=== PATIENT | female | born 1995 | race African-American/Black ===

== ENCOUNTER 2017-04-29 19:01 | Observation (INO) | payer OTHER ==
[2017-04-29 21:25] LABS: #Basophils 0.1 thou/uL (0.0-0.2); #Eosinphils 0.6 thou/uL (0.0-0.7); #Monocytes 0.7 thou/uL (0.11-0.59); #Neutrophils 10.4 thou/uL (1.40-6.50); %Basophils 0.4 % (0.0-1.0); %Eosinophils 4.6 % (0.0-10.0); %Lymphocytes 14.6 % (21.0-51.0); %Monocytes 5.3 % (0.0-10.0); %Neutrophils 75.1 % (42.0-75.0); Hemoglobin 10.1 g/dL (12.0-16.0); Mean Corpuscular HGB CONC 31.8 g/dL (32.0-36.0); Mean Corpuscular Hemoglobin 22.9 pg (27.0-31.0); Mean Platelet Volume 10.8 fL (7.4-10.4); Platelet Count 221 thou/uL (130-400); RBC Distribution Width 15.5 % (11.5-14.5); Red Blood Cell (RBC) Count 4.39 mill/uL (4.20-5.40); White Blood Cell (WBC) Count 13.9 thou/uL (4.8-10.8)
[2017-04-29 21:41] LABS: ALT (SGPT) 28 U/L (8-55); AST (SGOT) 22 U/L (5-34); Albumin 3.5 g/dL (3.5-5.0); Alkaline Phosphatase 128 U/L (40-150); Anion Gap 13 mmol/L (10-20); BUN (Urea Nitrogen) 7 mg/dL (7.0-18.7); Bilirubin, Total 0.2 mg/dL (0.2-1.2); Calc. Creatinine Clearance 0 mL/min (70-130); Calcium 9.4 mg/dL (7.8-10.44); Carbon Dioxide 21 mmol/L (22-29); Chloride 107 mmol/L (98-107); Estimated GFR-MDRD Greater than 90; Globulin 3.6 g/dL (2.4-3.5); Glucose 80 mg/dL (70-105); Protein, Total 7.1 g/dL (6.0-8.3); Sodium 137 mmol/L (136-145)
[2017-04-29 21:44] LABS: Bilirubin Negative (Negative); Blood, Urine Negative (Negative); Clarity CLOUDY (Clear); Glucose, Urine (Dipstick) Negative (Negative); Leukocyte Moderate (Negative); Nitrite Negative (Negative); Protein, Urine (Dipstick) Negative (Neg-Trace); Specific Gravity, Urine 1.026 (1.002-1.036); pH, Urine 6.5 (5.0-9.0)
[2017-04-29 21:46] LABS: Bacteria/HPF Rare-Few HPF (None Seen); Hyaline Casts/LPF 0-3 HYALINE CAST LPF (0-3 Hyaline); RBC/HPF 0-3 HPF (0-3); Squamous Epithelial 0-3 HPF (0-3); WBC/HPF 21-50 HPF (0-3)
[2017-04-29] MEDS ORDERED: Nitrofurantoin Monohyd/M-Cryst 100 MG CAP PO SCH (22:15)
[2017-04-30 00:01] VITALS: BMI 38.4
[2017-04-30] MEDS ORDERED: Ondansetron HCl/PF 4 MG/2 ML Vial IVP PRN (00:21)
[2017-04-30] MEDS ORDERED: Promethazine HCl 25 MG/ML VIAL IM PRN (00:21)
--- NOTE | 2017-04-30 04:41 | PRG ---
OB ER ENCOUNTER DATE OF ENCOUNTER: 04/30/2017 PRIMARY GIFT SHOP MANAGER: Dr. Ariel Jacobs. CHIEF COMPLAINT: Elevated blood pressures. HISTORY OF PRESENT ILLNESS: The patient is a 22-year-old G1, P0 female with an intrauterine at 29 weeks and 6 days, who presented to the emergency room with onset of itching of her face and neck and ears that have spontaneously resolved after arrival to the emergency room. However, during her workup, the patient was noted to have persistently elevated blood pressures over her 3-hour stay at [facility] was notified. The patient was brought to Labor and Delivery for blood pressure monitoring. The patient denies any headache, chest pain, shortness of breath, nausea, vomiting, diarrhea or constipation. She does report she has vomiting on occasion as result of her . She denies any new rash, hip problems, knee problems, vaginal bleeding or leakage of fluid. The patient has been given a prescription of Macrobid during her workup in the emergency room for urinary tract infection. PAST MEDICAL HISTORY: Negative. PAST SURGICAL HISTORY: Negative. SOCIAL HISTORY: Denies drug, alcohol or tobacco use. OB LABS: Unavailable. ALLERGIES: PEANUTS. MEDICATIONS: vitamins and Diclegis. PHYSICAL EXAMINATION: VITAL SIGNS: Ranging from 137/50 to 151/78. GENERAL: The patient appears to be in no acute distress. She is alert and oriented, cooperative and pleasant to interact with. HEENT: Normocephalic, atraumatic. LUNGS: Clear to auscultation bilaterally. HEART: Regular rate and rhythm. ABDOMEN: Gravid and soft, nontender. EXTREMITIES: Nontender, nonedematous. GENITOURINARY: Has been deferred. heart tracing shows fetus in the 130s with moderate long-term variability and overall reassuring. Tocometer shows no contractions. LABORATORY WORK: White count is 13.9, hemoglobin is 10.1, hematocrit 31.6, platelets 221,000. Sodium 137, potassium 4.0, chloride 107, bicarbonate 21, BUN 7, creatinine 0.7, glucose 80, calcium 8.4, AST 22, ALT 28. Urine cloudy with trace ketones, moderate leukocyte esterase, 21-50 white blood cells, 0-3 squamous cells and rare to few bacteria, negative for protein. ASSESSMENT AND PLAN: The patient is a 22-year-old female with an intrauterine at 29 weeks and 6 days, who presented to the emergency room for possible allergic reaction and was noted to have elevated blood pressures. The patient has been brought to the Labor and Delivery for blood pressure monitoring. Lab work has all come back negative thus far. We have begun a 24- hour urine collection. Initial pressures during her stay here, have been in the mild range. We will continue blood pressure monitoring, a 24-hour urine collection and intermittent evaluation of the fetus over the next several hours today. At this time it appears, the patient is developing gestational hypertension. We will be looking for signs of worsening disease. GENNA
--- NOTE | 2017-04-30 10:14 | PDOC.EVN ---
Event Note - Event Note Event Note: Chrome Polisher note: Assumed care this am. 24 hour urine in progress. at 29 weeks , negative PIH labs O/A and UP negative. 24 hour urine to be completed at 0300 .
--- NOTE | 2017-04-30 16:02 | PDOC.EVN ---
Event Note - Event Note Event Note: Transfer note to Patient undergoing 24 hour urine at 29 weeks. No PIH SXS. I have reviewed the BPs in L&D..140/90s-100/70s. NST reactive. As no evidence severe pressures, we will transfer to to continue BP obs and 24 hour urine.
[2017-05-01 03:32] LABS: Collection Duration 24 hrs; Urine Total Volume 1250 mL (600-1600)
[2017-05-01 04:13] LABS: Protein, Urine Less than 10 mg/dL (1-14)
--- NOTE | 2017-05-01 06:41 | PDOC.EVN ---
Event Note - Event Note Event Note: DISCHARGE NOTE Patient of Dr Jacobs Admit date: 04/30/17 Discharge date: 05/01/17 Diagnosis: MIld gestational hypertension (nonproteinuric) The patient was admitted by Dr Cm, for Dr luna, as a 29 week 6 day with elevatedd BPs in the ED. A 24 hour urine was collected with negative protein (vol 1250ml). BPs were 140/902-110/80s. No sxs of PIH. She was sent home to follow up with Dr Chu. Gestational HTN reviewed with her. NSTs were reactive.
[2017-05-01 08:03] VITALS: BP 117/58; TEMP 97.6
[2017-05-01] MEDS ORDERED: Prenatal Vitamin 1 TAB PO SCH (09:00)
== END 2017-05-01 10:32 | disposition home or self-care (01) ==
LOC: ERS 19:01 → L&D 23:43 → 3SE 04-30 18:56 → L&D 04-30 18:58 → 3SE 04-30 19:31
PROVIDERS: ADMIT Obstetrics & Gynecology; ATTEND Obstetrics & Gynecology
DX: O13.3 Gestational [pregnancy-induced] hypertension without significant proteinuria, third trimester (principal); Z91.010 Allergy to peanuts; Z79.899 Other long term (current) drug therapy; Z3A.29 29 weeks gestation of pregnancy
CPT/HCPCS: 36415; 80053; 81003; 81015; 84156; 85025; 96374; A4216; G0378; J2405

== ENCOUNTER 2018-07-11 03:59 | Inpatient (IN) | payer OTHER, SELFPAY ==
[2018-07-11] MEDS ORDERED: Ketorolac Tromethamine 60 MG/2 ML VIAL ONE (04:22)
[2018-07-11] MEDS ORDERED: Ondansetron ODT 8 MG TAB ONE (04:22)
[2018-07-11 05:08] LABS: ALT (SGPT) 969 U/L (8-55); AST (SGOT) 1332 U/L (5-34); Alkaline Phosphatase 185 U/L (40-150); Anion Gap 10 mmol/L (10-20); BUN (Urea Nitrogen) 12 mg/dL (7.0-18.7); Bilirubin, Total 1.3 mg/dL (0.2-1.2); Calc. Creatinine Clearance 0 mL/min (70-130); Calcium 9.4 mg/dL (7.8-10.44); Carbon Dioxide 25 mmol/L (22-29); Chloride 106 mmol/L (98-107); Estimated GFR-MDRD Greater than 90; Globulin 3.2 g/dL (2.4-3.5); Glucose 115 mg/dL (70-105); Potassium 3.4 mmol/L (3.5-5.1); Protein, Total 7.2 g/dL (6.0-8.3); Sodium 138 mmol/L (136-145)
[2018-07-11 06:25] LABS: #Basophils 0.1 thou/uL (0.0-0.2); #Eosinphils 0.7 thou/uL (0.0-0.7); #Lymphocytes 1.3 thou/uL (1.20-3.40); #Monocytes 0.4 thou/uL (0.11-0.59); #Neutrophils 3.9 thou/uL (1.40-6.50); %Basophils 0.9 % (0.0-1.0); %Eosinophils 10.8 % (0.0-10.0); %Lymphocytes 20.5 % (21.0-51.0); %Monocytes 5.8 % (0.0-10.0); Hemoglobin 11.2 g/dL (12.0-16.0); Mean Corpuscular HGB CONC 30.6 g/dL (32.0-36.0); Mean Corpuscular Hemoglobin 21.3 pg (27.0-31.0); Mean Corpuscular Volume 69.5 fL (78.0-98.0); Mean Platelet Volume 8.1 fL (7.4-10.4); Platelet Count 179 thou/uL (130-400); RBC Distribution Width 17.1 % (11.5-14.5); Red Blood Cell (RBC) Count 5.28 mill/uL (4.20-5.40); White Blood Cell (WBC) Count 6.2 thou/uL (4.8-10.8)
[2018-07-11] MEDS ORDERED: Morphine 2 MG/ML SYRINGE ONE ×2 (06:36→16:41)
[2018-07-11 06:45] LABS: Lymphocytes 21 % (21-51); MDiff Complete? YES; Microcytosis SLIGHT = 6-15 cells (100X) (0-5/hpf); Neutrophil 79 % (42-75); Platelet Morphology Comment Appears Adequate
[2018-07-11] MEDS ORDERED: cefOXitin Sodium/Dextrose,Iso 2 GM in Premix Bag 1 BAG IVPB SCH (07:00)
[2018-07-11 07:19] LABS: Bilirubin Moderate (Negative); Blood, Urine Negative (Negative); Glucose, Urine (Dipstick) 100 mg/dL (Negative); Leukocyte Negative (Negative); Nitrite Negative (Negative); Protein, Urine (Dipstick) 30 mg/dL (Neg-Trace); pH, Urine 6.5 (5.0-9.0)
[2018-07-11 07:31] LABS: Clarity Hazy (Clear); Specific Gravity, Urine 1.039 (1.002-1.036)
[2018-07-11 07:32] LABS: Pregnancy Test - Urine (BHCG) Negative (Negative); Pregu Control Background? CLEAR/WHITE (CLR/WHITE); Pregu Control Bar Appear? YES (CONTROL BAR); Specific Gravity 1.039 (1.002-1.036)
[2018-07-11 07:46] LABS: Bacteria/HPF 3+ HPF (None Seen); RBC/HPF 0-3 HPF (0-3); Squamous Epithelial 0-3 HPF (0-3); WBC/HPF 0-3 HPF (0-3); Yeast-All Forms None Seen HPF (None Seen)
--- NOTE | 2018-07-11 08:27 | ULT ---
GALLBLADDER ULTRASOUND: INDICATION: New-onset epigastric pain with nausea and constipation. FINDINGS: No focal hepatic lesion. The gallbladder demonstrates foci of increased echogenicity that are mobile during the exam. No abnormal gallbladder wall thickening. There is biliary ductal dilatation measu ring 6-7 mm, where visualized. A slight degree of increased echogenicity of the hepatic parenchyma i s documented. No ascites. Horn's sign is reported as negative by the yarn carrier. IMPRESSION: 1. Cholelithiasis. No scintigraphic findings to confirm acute cholecystitis. 2. The common duct is dilated. Recommend correlation with biliary laboratory values to exclude a de veloping obstructive process. POS: SONG
[2018-07-11] MEDS ORDERED: Ketorolac Tromethamine 30 MG/ML VIAL ONE (12:58)
[2018-07-11] MEDS ORDERED: Bupivacaine/Epinephrine 0.25% 30 ML VIAL ONE (13:27)
[2018-07-11] MEDS ORDERED: Fentanyl 250 MCG/5 ML VIAL ONE (13:35)
[2018-07-11] MEDS ORDERED: Midazolam HCl 2 mg/2 ml Vial ONE (13:35)
[2018-07-11] MEDS ORDERED: Ondansetron PF 4 MG/2 ML Vial ONE (14:39)
[2018-07-11] MEDS ORDERED: Lidocaine 1% PF 5 ML VIAL ONE (14:39)
[2018-07-11] MEDS ORDERED: Rocuronium Bromide 10 MG/ML (10ML VIAL) ONE (14:39)
[2018-07-11] MEDS ORDERED: Dexamethasone 20 MG/5 ML VIAL ONE (14:39)
[2018-07-11] MEDS ORDERED: PROPOFOL 200 MG/20 ML VIAL ONE (14:39)
[2018-07-11] MEDS ORDERED: PHENYLEPHRINE-NS 100 MCG/ML 10 ML SYRINGE ONE (14:39)
[2018-07-11] MEDS ORDERED: Fentanyl 100 MCG/2 ML VIAL ONE (15:16)
[2018-07-11] MEDS ORDERED: HYDROcodone/Acetaminophen 5/325 mg Tablet ONE (17:26)
--- NOTE | 2018-07-12 15:33 | OP ---
DATE OF PROCEDURE: 07/11/2018 PREOPERATIVE DIAGNOSIS: Symptomatic cholelithiasis with suspected cholecystitis, with associated transaminitis and slightly elevated bilirubin. POSTOPERATIVE DIAGNOSIS: Symptomatic cholelithiasis with suspected cholecystitis, with associated transaminitis and slightly elevated bilirubin. PROCEDURE: Laparoscopic cholecystectomy. ANESTHESIA: General endotracheal. INDICATIONS: The patient is an obese 23-year-old black female. She presented to the hospital with complaints of right upper quadrant/epigastric abdominal pain. Ultrasound reveals evidence of cholelithiasis. Although she had abnormal liver function tests, these were felt to less likely be associated with choledocholithiasis. I decided to evaluate the cystic duct for decision making regarding cholangiogram. PROCEDURE IN DETAIL: Informed consent was obtained. The patient was taken to the operating room where general endotracheal anesthesia was obtained with the patient in the supine position. The abdomen was prepped with Betadine and draped in the usual sterile fashion. 0.25% Marcaine with epinephrine was infiltrated below the umbilicus and a 10 mm infraumbilical incision was created. A Veress needle was passed through this incision into the peritoneal cavity. A pneumoperitoneum was established using carbon dioxide up to a pressure of 15 mmHg. Local anesthetic was infiltrated and 3 additional 5 mm right upper quadrant incisions were created. Through the mid incision, a 5 mm port was passed into the peritoneal cavity. The camera was passed through this port and under direct vision, an 11 port was passed through the infraumbilical incision. The camera was replaced through this port, and under direct vision, 2 additional 5 mm ports were passed through the incisions already created. The gallbladder was grasped and retracted in a cephalad direction. Minimal adhesions were bluntly stripped away from the apex of the gallbladder, and the apex was retracted laterally and inferiorly. Careful dissection was carried out to the apex of the gallbladder to identify the cystic duct and cystic artery. These were each carefully dissected circumferentially. The duct was of normal caliber. Both the duct and the artery were divided between clips, leaving 2 on the side to remain within the abdomen. The gallbladder was then dissected out of the gallbladder fossa using electrocautery and removed through the infraumbilical port site. The fascia was closed with 0 Vicryl suture and a GraNee needle. The right upper quadrant was inspected and irrigated. All irrigant was aspirated. All ports and instruments were removed under direct vision. Pneumoperitoneum was carefully evacuated. Additional local anesthetic was infiltrated into each port site. The skin edges were approximated with 4-0 Monocryl subcuticular sutures, and Dermabond was placed externally. There were no complications. The patient tolerated the procedure well and was taken to the recovery room in stable condition. FINDINGS: The gallbladder was not consistent with acute cholecystitis. There were adhesions to the gallbladder consistent with prior episodes of inflammatory change. The cystic duct was small and noninflamed. The duct was incised and I was able to express clear bile retrograde with no concerning intraductal abnormality. Cholangiogram was not obtained. The operation was performed with essentially no blood loss and no complications. The patient tolerated the procedure well and was taken to recovery room in stable condition. Job ID: [id number]
--- NOTE | 2018-07-14 22:31 | CON ---
DATE OF CONSULTATION: 07/11/2018 CHIEF COMPLAINT: Right upper quadrant abdominal pain/possible flank pain/radiation to the back. HISTORY OF PRESENT ILLNESS: The patient is an obese 23-year-old black female. She had apparently been evaluated on a few occasions at [facility] recently. She had gallbladder ultrasound, was told that there were no abnormalities. She had also been admitted for few days for cardiac evaluation, apparently looking for an etiology of her pain as it was not felt to be her gallbladder. She was apparently discharged from there relatively recently (yesterday). She had recurrence/persistence of the pain and she presented to this emergency room. Laboratory studies obtained while in the emergency room revealed a normal CBC (except for mild anemia with a hemoglobin of 11.2). She had abnormal liver function tests; however, her bilirubin was elevated at 1.3. Her transaminases (AST and ALT) were both very high at 1300 and 970. Her alkaline phosphatase was minimally elevated at 185. Her gallbladder ultrasound revealed gallstones present within the gallbladder and possible mild dilatation of the bile common bile duct at 6-7 mm. I was asked to evaluate her in regard to these findings. She notes currently that she feels much better than she did when she presented. PAST MEDICAL HISTORY: Essentially negative. PAST SURGICAL HISTORY: None. MEDICATIONS: She denies any current medications. ALLERGIES: NO KNOWN DRUG ALLERGIES. PERSONAL AND SOCIAL HISTORY: She does not smoke and does not drink alcohol. She does not currently work. She lives with her parents. REVIEW OF SYSTEMS: Otherwise unremarkable. FAMILY HISTORY: Noncontributory. PHYSICAL EXAMINATION: VITAL SIGNS: She is afebrile with normal vital signs. GENERAL: She is a well-nourished, well-developed, obese black female, resting in bed, in no acute distress. She is alert oriented x3. HEAD, EYES, EARS, NOSE, AND THROAT: Unremarkable. NECK: Supple without mass or tenderness. LUNGS: Clear to auscultation throughout. CARDIAC: Regular rate and rhythm without murmur. ABDOMEN: Obese, but soft. There is no current focal tenderness in the right upper quadrant or epigastrium. She believes subjectively that this is where discomfort was. EXTREMITIES: Unremarkable. ASSESSMENT: The patient with gallstones and elevated liver function tests. Her laboratory profile is not typical of choledocholithiasis and at this time I recommend a laparoscopic cholecystectomy. If she has any evidence of cystic ductal dilatation, I would proceed with a cholangiogram, otherwise this probably is not necessary. I discussed the operation in detail with the patient as well as potential risks. She understands and agrees to proceed with surgery at this time. Job ID: [id number]
== END 2018-07-11 18:06 | disposition home or self-care (01) | DRG 419 ==
LOC: ERS 03:59 → ERHOLD 11:25
PROVIDERS: ADMIT Specialist; ATTEND Specialist
PROC: 0FT44ZZ Resection of Gallbladder, Percutaneous Endoscopic Approach (ICD-10-PCS; principal; 2018-07-11)
DX: K80.10 Calculus of gallbladder with chronic cholecystitis without obstruction (principal)
CPT/HCPCS: 36415; 76705; 80053; 81003; 81015; 81025; 85025; 88304; 96361; 96372; 96374; J0131; J0690; J0694; J1100; J1885; J2001; J2250; J2270; J2405; J2704; J3010

== ENCOUNTER 2019-09-15 16:39 | Day surgery (SDC) | payer OTHER ==
[2019-09-15] MEDS ORDERED: hydrALAZINE 20 MG/ML VIAL SLOW IVP PRN (16:49)
--- NOTE | 2019-09-15 16:58 | PDOC.LDHP ---
Labor and Delivery H&P Chief complaint: abdominal pain (N/V but no CTX, no fevers) HPI: Patient of Dr Jacobs 1700 24 yo at 30 weeks 4 days with on/off nausea, nonsevere. No loose stool. Also with some bilateral "cramping" but no LOF, no VB. States vag dsch different colors x 2 weeks. She does not believe she has ROM. Review of Systems: complete ROS completed and as per hpi Current gestational age (weeks): 30 (4 days) Grav: 2 Para: 1 OB History Details: x 1 Current complications: none Abnormal US findings: No Current medications: pre-rajwinder vitamins Previous surgical history: cholecystectomy Allergies/Adverse Reactions: Allergies Allergy/AdvReac Type Severity Reaction Status Date / Time peanut Allergy Verified 09/15/19 16:47 - Physical Exam Vital signs reviewed and normal: yes General: NAD, resting Heart: RRR Lungs: CTAB Abdomen: gravid FHT: category 1 [place] contractions every: no ctx - Assessment Nausea at 30 weeks 4 days, does not have her gallbladder, and DSCH x 2 weeks. Do not suspect LOF. Good FM - Plan Plan: observation in L&D (Spec exam ordered, I have ordered GC and CHL (which I told her will not come back today). Check [address] MAGISTRATE#; UA and CMP. Order TVUS for cervical length. I have discussed all these evals with her at bedside)
--- NOTE | 2019-09-15 17:01 | PDOC.LDHP ---
Labor and Delivery H&P Chief complaint: abdominal pain Current gestational age (weeks): 30 (30.4 WGA) Grav: 3 Para: 1 (1011) OB History Details: 1 term & 1 SAB Current complications: none Current medications: pre-rajwinder vitamins Previous surgical history: cholecystectomy Allergies/Adverse Reactions: Allergies Allergy/AdvReac Type Severity Reaction Status Date / Time peanut Allergy Verified 09/15/19 16:47 Social history: none - Physical Exam Vital signs reviewed and normal: yes General: NAD, resting
--- NOTE | 2019-09-15 17:11 | PDOC.BPN ---
- Brief Progress Note Pelvic exam notable for close, friable cervix w/ moderate amount of white/ yellow mucoid discharge coming from cervical os. No pooling noted. No CMT. GC/ Chlamydia & VP3 swabs obtained.
[2019-09-15 17:27] VITALS: BP 124/69; TEMP 98.1; BMI 40.4
[2019-09-15 17:49] LABS: Bacteria/HPF 1+ HPF (None Seen); Bilirubin Negative (Negative); Blood, Urine Negative (Negative); Clarity Clear (Clear); Glucose, Urine (Dipstick) Normal (Negative); Leukocyte Negative Leu/uL (Negative); Mucous/LPF 1+ LPF (<2+); Nitrite Negative (Negative); Protein, Urine (Dipstick) 20 mg/dL (Neg-Trace); RBC/HPF 0-3 HPF (0-3); Squamous Epithelial 0-3 HPF (0-3); Urobilinogen 3 mg/dL (Less than 2); WBC/HPF 0-3 HPF (0-3)
[2019-09-15 17:50] LABS: Urine Culture Reflex Yes Yes
--- NOTE | 2019-09-15 18:04 | PDOC.EVN ---
Event Note - Event Note Event Note: UA with 1+ bacteria, clean sample. Will order macrobid for her as outpatient
--- NOTE | 2019-09-15 18:15 | ULT ---
LIMITED PELVIC ULTRASOUND: History: Evaluate cervical length Comparison: None FINDINGS: Vertex presentation. heart tones with a rate of 139 beats/minute. Cervix is closed and measures between 3.2 and 3.4 cm. IMPRESSION: Cervical length between 3.2 and 3.4 cm. Verbal report was given by the transformer assembly supervisor to Dr. Merino upon completion of the examination 09-15-2019 at 5:42 p.m. POS: PPP
[2019-09-15 18:21] LABS: ALT (SGPT) 24 U/L (8-55); AST (SGOT) 18 U/L (5-34); Albumin 3.5 g/dL (3.5-5.0); Alkaline Phosphatase 105 U/L (40-110); Anion Gap 11 mmol/L (10-20); BUN (Urea Nitrogen) 11 mg/dL (7.0-18.7); Bilirubin, Total 0.3 mg/dL (0.2-1.2); Calc. Creatinine Clearance 214 mL/min (70-130); Calcium 9.4 mg/dL (7.8-10.44); Carbon Dioxide 23 mmol/L (22-29); Chloride 106 mmol/L (98-107); Estimated GFR-MDRD Greater than 90; Globulin 3.4 g/dL (2.4-3.5); Glucose 83 mg/dL (70-105); Potassium 3.9 mmol/L (3.5-5.1); Protein, Total 6.9 g/dL (6.0-8.3); Sodium 136 mmol/L (136-145)
--- NOTE | 2019-09-15 18:21 | PDOC.EVN ---
Event Note - Event Note Event Note: DC NOTE: Patient seen at bedside. No CTX. CX length was 3.1cm earlier today. VP3 and GC/CHL are still pending. CMP is also pending. As she is clinically well and has stated that her daughter is downstairs with a family member who desires to leave, we have agreed to discharge the patient and have her follow up results with Dr Jacobs tomorrow AM. I wrote down for her to follow up: CMP, GC/CHL, VP3 I gave her a macrobid RX as well.
== END 2019-09-15 18:20 | disposition home or self-care (01) ==
LOC: UNDOADMIN 16:39 → L&D 16:39 → SJX 16:39 → UNDODISIN 18:20 → SJX 18:20 → EDSTATUS 09-20 19:46
PROVIDERS: ATTEND Family Medicine
DX: O26.893 Other specified pregnancy related conditions, third trimester (principal); Z3A.30 30 weeks gestation of pregnancy; R11.0 Nausea; Z90.49 Acquired absence of other specified parts of digestive tract
CPT/HCPCS: 36415; 59025; 76856; 80053; 81001; 87086; 87480; 87491; 87510; 87591; 87660; 99285

== ENCOUNTER 2019-10-30 16:29 | Day surgery (SDC) | payer OTHER ==
[2019-10-30 17:11] VITALS: BMI 39.5
[2019-10-30 17:14] VITALS: BP 129/65; TEMP 98.8
[2019-10-30] MEDS ORDERED: hydrALAZINE 20 MG/ML VIAL SLOW IVP PRN (17:44)
--- NOTE | 2019-10-31 05:00 | SS ---
DATE OF ADMISSION: 10/30/2019 DATE OF DISCHARGE: 10/30/2019 REGULAR PHYSICIAN: Ariel Jacobs MD EVALUATING PHYSICIAN: Ventura Leija MD CHIEF COMPLAINT: Lost mucous plug. HISTORY OF PRESENT ILLNESS: Ms. Keita is a 24-year-old black G3, P1, with an estimated date of confinement of 11/20/2019, who presents complaining of a mucousy discharge after an exam by Dr. Jacobs in the office today. She denies vaginal bleeding, regular contractions, or decreased movement. Her care has been with Dr. Jacobs and has been reportedly uncomplicated. PAST OBSTETRICAL HISTORY: Includes one vaginal delivery at term and one miscarriage. PAST MEDICAL HISTORY: Asthma and anxiety. PAST SURGICAL HISTORY: Laparoscopic cholecystectomy. CURRENT MEDICATIONS: 1. vitamins. 2. Zofran on a p.r.n. basis. 3. She states she is currently on Macrodantin for UTI. ALLERGIES: PEANUTS, WHICH CAUSES HER TO SWELL. SOCIAL HISTORY: Denies tobacco, alcohol, or drug use. FAMILY HISTORY: Unremarkable. REVIEW OF SYSTEMS: Denies nausea, vomiting, fever, chills, ruptured membranes, or vaginal bleeding. PHYSICAL EXAMINATION: In triage, her; VITAL SIGNS: Stable. She is afebrile. GENERAL: She is pleasant. She is in no acute distress. ABDOMEN: Soft, nontender, and gravid. PELVIC: Pelvic exam by the labor nurse shows the external os to be 3 cm dilated. The internal os appears to be closed in its mid position and position slightly to the patient's right side. heart rate tracing is stable. Spontaneous accelerations are seen. No decelerations are seen. No significant uterine contractions are noted. ASSESSMENT: 1. A 37-week intrauterine . 2. No evidence of active labor at this time. PLAN: The patient will be dismissed home. Labor precautions were reviewed with her in detail and she voices understanding of these. She will follow up with Dr. Jacobs for her next scheduled visit. Job ID: [id number]
== END 2019-10-30 17:50 | disposition home health service, planned readmission (86) ==
LOC: L&D/OP 16:29
PROVIDERS: ATTEND Family Medicine
DX: O99.89 Other specified diseases and conditions complicating pregnancy, childbirth and the puerperium (principal); N89.8 Other specified noninflammatory disorders of vagina; O09.293 Supervision of pregnancy with other poor reproductive or obstetric history, third trimester; Z3A.37 37 weeks gestation of pregnancy; Z91.010 Allergy to peanuts
CPT/HCPCS: 99282

== ENCOUNTER 2019-11-02 02:31 | Day surgery (SDC) | payer OTHER ==
[2019-11-02 03:06] VITALS: BMI 42.4
[2019-11-02] MEDS ORDERED: hydrALAZINE 20 MG/ML VIAL SLOW IVP PRN (03:24)
[2019-11-02] MEDS ORDERED: Acetaminophen 500 MG TAB PO SCH (03:30)
--- NOTE | 2019-11-02 04:13 | PDOC.LDHP ---
Labor and Delivery H&P Chief complaint: other (back pain) HPI: Patient is a 24 yo at 37.3 WGA with MARLYS of 11/20/2019 who presents with complaint of back pain that has been occurring on/off for 2 days. She thinks she is having some occasional contractions. She was seen in the office by Dr. Jacobs a few days ago and was told she was dilated to a 2. Patient had lost her mucous plug at that time. Today she denies any headache, vision changes, chest pain, abdominal pain, LOF, vaginal bleeding, vaginal discharge, n/v. She has been followed by Dr. Jacobs during this . She is currently taking Macrobid for a UTI. Current gestational age (weeks): 37 (37.3) Due date: 11/20/19 Dating criteria: last menstrual period Grav: 3 Para: 1 (1011) OB History Details: 1 prior at term, 1 1st trimester miscarriage Followed by Dr. Jacobs this , has had no major issues Current complications: none Past Medical History: Asthma, Anxiety, Depression--not currently on any meds for these Current medications: pre- vitamins Previous surgical history: cholecystectomy Allergies/Adverse Reactions: Allergies Allergy/AdvReac Type Severity Reaction Status Date / Time peanut Allergy Verified 11/02/19 03:00 Social history: none - Physical Exam Abnormal vital signs: BP 146/72, otherwise vital wnl General: NAD, resting Heart: RRR Lungs: CTAB Abdomen: gravid Extremeties: no edema FHT: category 1 (FHR 150 bpm, multiple accels, moderate variability, no decels) , variability present - Vaginal Exam cm dilated: 2 Effacement: 50% Station: -3 - OB Labs GBS: negative - Assessment Third Trimester , not in labor - Plan Plan: observation in L&D -: Patient is a 24 yo female at 37.3 WGA who presents with back pain: Third Trimester -at 37.3 weeks today, followed by Dr. Jacobs at [facility] -cervical check /-3, unchanged from reported office exam 3 days ago -GBS negative -occasional contraction seen on monitor, may be contributing to back pain -will give dose of Tylenol and apply warm heating pad for back pain -continue to monitor on L&D Elevated Blood Pressure w/o dx of HTN -initial BP 146/72, will continue to monitor -elevated BP likely secondary to pain -review of office records show recent BP in 130s/80s UTI -currently taking Macrobid Dispo: Stable, will treat symptomatically and monitor vitals on L&D. Will reassess in an hour. 11/02/2019, 0500 Addendum: Patient's BP reviewed and shows majority with systolic 140s/diastolic 80s. Most recent pressure 138/71. Patient feeling better after Tylenol and heating pad, expresses desire to return home. Repeat cervical check is unchanged. Return precautions discussed. Patient has follow up scheduled with Dr. Jacobs on 11/06/2019, encouraged to keep appt. Discharged home at 0450 in stable condition. Addendum - Attending - Attending Attestation Date/Time: 11/02/19 0605 I personally evaluated the patient and discussed the management with Dr. Medrano. I agree with the History, Examination, Assessment and Plan documented above.
== END 2019-11-02 04:49 | disposition home health service (06) ==
LOC: L&D/OP 02:31
PROVIDERS: ATTEND Family Medicine
DX: O99.89 Other specified diseases and conditions complicating pregnancy, childbirth and the puerperium (principal); M54.9 Dorsalgia, unspecified; R03.0 Elevated blood-pressure reading, without diagnosis of hypertension; O23.43 Unspecified infection of urinary tract in pregnancy, third trimester; O99.513 Diseases of the respiratory system complicating pregnancy, third trimester; J45.909 Unspecified asthma, uncomplicated; O99.343 Other mental disorders complicating pregnancy, third trimester; F41.9 Anxiety disorder, unspecified; F32.9 Major depressive disorder, single episode, unspecified; Z3A.37 37 weeks gestation of pregnancy; Z79.2 Long term (current) use of antibiotics; Z91.010 Allergy to peanuts

== ENCOUNTER 2020-01-29 13:02 | Emergency (ER) | payer OTHER | END 2020-01-29 14:32 | disposition home or self-care (01) | LOC: ERS 13:02 | DX: Z76.0 Encounter for issue of repeat prescription (principal); J45.909 Unspecified asthma, uncomplicated | CPT/HCPCS: 99281 ==

== ENCOUNTER 2020-02-25 20:40 | Emergency (ER) | payer OTHER ==
[2020-02-25] MEDS ORDERED: predniSONE 20 MG TAB ONE (21:24)
[2020-02-25] MEDS ORDERED: Albuterol 200 PUFF (6.7GM INHALER) ONE (21:33)
--- NOTE | 2020-02-25 21:41 | RAD ---
Frontal radiograph chest: 02/25/2020 COMPARISON: 11/16/2018 HISTORY: Shortness of breath and cough FINDINGS: There is a suggestion of hazy nonspecific groundglass opacity in the perihilar regions and both lung bases. A degree of this opacity may be on the basis of body habitus and soft tissue attenuation. No pneumothorax, lobar consolidation, or alveolar edema. IMPRESSION: Findings suspicious for groundglass opacity in the lung bases. A degree of this opacity h owever may be on the basis of soft tissue attenuation. In the proper clinical setting, atypical infectious pneumonitis, including Covid 19, there is a possibility.
== END 2020-02-25 22:24 | disposition home or self-care (01) ==
LOC: ERS 20:40
DX: J45.901 Unspecified asthma with (acute) exacerbation (principal); Z20.828 Contact with and (suspected) exposure to other viral communicable diseases; F41.9 Anxiety disorder, unspecified; F32.9 Major depressive disorder, single episode, unspecified; F17.210 Nicotine dependence, cigarettes, uncomplicated; Z79.51 Long term (current) use of inhaled steroids
CPT/HCPCS: 71045; 94640; J7512

== ENCOUNTER 2020-04-20 17:56 | Emergency (ER) | payer OTHER ==
[2020-04-20] MEDS ORDERED: Lidocaine 1% PF 5 ML VIAL ONE (18:47)
[2020-04-20] MEDS ORDERED: Bacitracin 1 PK ONE (19:24)
== END 2020-04-20 19:46 | disposition home or self-care (01) ==
LOC: ERS 17:56
DX: S51.811A Laceration without foreign body of right forearm, initial encounter (principal); J45.909 Unspecified asthma, uncomplicated; F17.210 Nicotine dependence, cigarettes, uncomplicated; Z79.899 Other long term (current) drug therapy; W01.0XXA Fall on same level from slipping, tripping and stumbling without subsequent striking against object, initial encounter
CPT/HCPCS: 12001

== ENCOUNTER 2020-04-30 10:59 | Emergency (ER) | payer OTHER ==
[2020-04-30] MEDS ORDERED: Albuterol Sulfate 2.5 mg/0.5 ml Neb ONE (11:45)
[2020-04-30] MEDS ORDERED: Albuterol Sulfate 2.5 mg/3 ml Neb ONE (11:45)
[2020-04-30] MEDS ORDERED: predniSONE 20 MG TAB ONE (12:10)
== END 2020-04-30 13:13 | disposition home or self-care (01) ==
LOC: ERS 10:59
DX: J45.901 Unspecified asthma with (acute) exacerbation (principal); F17.210 Nicotine dependence, cigarettes, uncomplicated; Z79.51 Long term (current) use of inhaled steroids
CPT/HCPCS: J7512; J7611; J7620

== ENCOUNTER 2020-05-01 22:26 | Emergency (ER) | payer OTHER | END 2020-05-02 00:07 | disposition left against medical advice (07) | LOC: ERS 22:26 | DX: Z53.21 Procedure and treatment not carried out due to patient leaving prior to being seen by health care provider (principal) ==

== ENCOUNTER 2020-06-17 20:07 | Emergency (ER) | payer OTHER ==
[2020-06-17 20:32] LABS: Bilirubin Negative (Negative); Blood, Urine Trace (Negative); Clarity Turbid (Clear); Glucose, Urine (Dipstick) Normal (Negative); Ketone, Urine Negative (Negative); Leukocyte 500 Leu/uL (Negative); Nitrite 2+ (Negative); Pregnancy Test - Urine (BHCG) Negative (Negative); Pregu Control Background? CLEAR/WHITE (CLR/WHITE); Pregu Control Bar Appear? YES (CONTROL BAR); Protein, Urine (Dipstick) 50 mg/dL (Neg-Trace); RBC/HPF 0-3 HPF (0-3); Specific Gravity 1.029 (1.002-1.036); Specific Gravity, Urine 1.029 (1.002-1.036); Urobilinogen Normal mg/dL (Less than 2); WBC/HPF 21-50 HPF (0-3); pH, Urine 6.5 (5.0-9.0)
[2020-06-17 20:33] LABS: Bacteria/HPF 1+ HPF (None Seen)
[2020-06-17] MEDS ORDERED: Ketorolac Tromethamine 30 MG/ML VIAL ONE (21:10)
== END 2020-06-17 21:50 | disposition home or self-care (01) ==
LOC: ERS 20:07
DX: N30.00 Acute cystitis without hematuria (principal); D64.9 Anemia, unspecified
CPT/HCPCS: 81003; 81015; 81025; 87077; 87086; 87186; 96372; 99283; J1885

== ENCOUNTER 2020-07-12 10:44 | Emergency (ER) | payer OTHER ==
[2020-07-12] MEDS ORDERED: Dexamethasone 4 MG TAB ONE (12:13)
[2020-07-12] MEDS ORDERED: Albuterol Sulfate 2.5 mg/0.5 ml Neb ONE (13:10)
== END 2020-07-12 13:48 | disposition home or self-care (01) ==
LOC: ERS 10:44
DX: J45.901 Unspecified asthma with (acute) exacerbation (principal); D64.9 Anemia, unspecified
CPT/HCPCS: 71045; 94640; J7611; J7620; J8540

== ENCOUNTER 2020-12-29 22:28 | Emergency (ER) | payer OTHER ==
[2020-12-29 22:56] LABS: Bacteria/HPF None Seen HPF (None Seen); Bilirubin Negative (Negative); Blood, Urine Negative (Negative); Clarity Hazy (Clear); Glucose, Urine (Dipstick) Normal (Negative); Ketone, Urine Trace mg/dL (Negative); Leukocyte 75 Leu/uL (Negative); Nitrite Negative (Negative); Protein, Urine (Dipstick) 20 mg/dL (Neg-Trace); RBC/HPF 0-3 HPF (0-3); Specific Gravity, Urine 1.034 (1.002-1.036); WBC/HPF 0-3 HPF (0-3); pH, Urine 6.5 (5.0-9.0)
[2020-12-29 22:57] LABS: Pregnancy Test - Urine (BHCG) POSITIVE (Negative); Pregu Control Background? CLEAR/WHITE (CLR/WHITE); Pregu Control Bar Appear? YES (CONTROL BAR); Specific Gravity 1.034 (1.002-1.036)
[2020-12-29] MEDS ORDERED: Acetaminophen 500 MG TAB ONE (23:10)
== END 2020-12-29 23:14 | disposition home or self-care (01) ==
LOC: ERS 22:28
DX: O21.9 Vomiting of pregnancy, unspecified (principal); O99.011 Anemia complicating pregnancy, first trimester; D64.9 Anemia, unspecified; O99.511 Diseases of the respiratory system complicating pregnancy, first trimester; O16.1 Unspecified maternal hypertension, first trimester; J45.909 Unspecified asthma, uncomplicated
CPT/HCPCS: 81003; 81015; 81025; 99283

== ENCOUNTER 2021-03-25 22:05 | Emergency (ER) | payer OTHER, SELFPAY ==
[2021-03-25 23:27] LABS: Bacteria/HPF 2+ HPF (None Seen); Bilirubin Negative (Negative); Blood, Urine Negative (Negative); Clarity Clear (Clear); Glucose, Urine (Dipstick) Normal (Negative); Ketone, Urine Negative (Negative); Leukocyte 75 Leu/uL (Negative); Mucous/LPF Rare LPF (<2+); Nitrite Negative (Negative); Protein, Urine (Dipstick) 20 mg/dL (Neg-Trace); RBC/HPF 0-3 HPF (0-3); Renal Epithelial 0-3 HPF (None Seen); Specific Gravity, Urine 1.033 (1.002-1.036); Urobilinogen 3 mg/dL (Less than 2)
[2021-03-26] MEDS ORDERED: Acetaminophen 500 MG TAB ONE (01:05)
[2021-03-26] MEDS ORDERED: Metoclopramide HCl 10 MG TAB ONE (01:05)
== END 2021-03-26 01:17 | disposition home or self-care (01) ==
LOC: ERS 22:05
DX: O99.891 Other specified diseases and conditions complicating pregnancy (principal); R11.2 Nausea with vomiting, unspecified; Z3A.18 18 weeks gestation of pregnancy; O99.012 Anemia complicating pregnancy, second trimester; O99.512 Diseases of the respiratory system complicating pregnancy, second trimester; J45.909 Unspecified asthma, uncomplicated
CPT/HCPCS: 36415; 81003; 81015; 84702

== ENCOUNTER 2022-09-19 11:30 | Emergency (ER) | payer OTHER | END 2022-09-19 12:46 | disposition left against medical advice (07) | LOC: ERS 11:30 | DX: Z53.21 Procedure and treatment not carried out due to patient leaving prior to being seen by health care provider (principal) ==

== ENCOUNTER 2022-12-15 09:15 | Outpatient (CLI) | payer OTHER | END 2022-12-15 09:16 | disposition home or self-care (01) | LOC: BICULT 09:15 | PROVIDERS: ATTEND Nurse Practitioner Women's Health | DX: Z34.82 Encounter for supervision of other normal pregnancy, second trimester (principal); Z3A.17 17 weeks gestation of pregnancy | CPT/HCPCS: 76805 ==

== ENCOUNTER 2023-02-02 10:52 | Emergency (ER) | payer OTHER ==
[2023-02-02] MEDS ORDERED: Dexamethasone 10 MG/ML VIAL ONE (11:17)
[2023-02-02] MEDS ORDERED: Ipratropium/Albuterol 3 ML NEB ONE ×3 (11:17→12:48)
[2023-02-02] MEDS ORDERED: Acetaminophen 500 MG TAB ONE (11:17)
[2023-02-02] MEDS ORDERED: Dexamethasone 4 MG TAB ONE (11:19)
== END 2023-02-02 13:10 | disposition home or self-care (01) ==
LOC: ERS 10:52
DX: J44.1 Chronic obstructive pulmonary disease with (acute) exacerbation (principal); J06.9 Acute upper respiratory infection, unspecified
CPT/HCPCS: J1100; J7620; J8540

== ENCOUNTER 2023-05-26 18:42 | Emergency (ER) | payer OTHER ==
[2023-05-26] MEDS ORDERED: Dexamethasone 10 MG/ML VIAL ONE (19:47)
== END 2023-05-26 20:06 | disposition home or self-care (01) ==
LOC: ERS 18:42
DX: I88.9 Nonspecific lymphadenitis, unspecified (principal)
CPT/HCPCS: 96372; 99283; J1100

== ENCOUNTER 2024-01-23 18:01 | Emergency (ER) | payer SELFPAY ==
[2024-01-23] MEDS ORDERED: Ipratropium/Albuterol 3 ML NEB ONE ×2 (18:08→21:21)
[2024-01-23] MEDS ORDERED: methylPREDNISolone Sod Succ/PF 125 MG/2 ML VIAL ONE (20:47)
[2024-01-23] MEDS ORDERED: Magnesium 2 GM/50 ML BAG (IN WATER) ONE (21:26)
== END 2024-01-23 23:24 | disposition home or self-care (01) ==
LOC: ERS 18:01
DX: J45.901 Unspecified asthma with (acute) exacerbation (principal); Z55.6 Problems related to health literacy; Z79.51 Long term (current) use of inhaled steroids
CPT/HCPCS: 71045; 93005; 96365; 96375; J2919; J3475; J7620

== ENCOUNTER 2025-02-17 11:06 | Inpatient (IN) | payer SELFPAY ==
[2025-02-17] MEDS ORDERED: Magnesium 2 GM/50 ML BAG (IN WATER) ONE ×2 (11:17→12:40)
[2025-02-17] MEDS ORDERED: Albuterol 2.5 MG (3 mL) NEB ONE ×3 (11:20→12:40)
[2025-02-17] MEDS ORDERED: cefTRIAXone (ROCEPHIN) 1 GM VIAL ONE (12:18)
[2025-02-17 12:24] LABS: #Basophils Less than 0.03 10x3/uL (0.0-0.2); #Eosinophils Less than 0.03 10x3/uL (0.0-0.7); #Monocytes 0.68 10x3/uL (0.11-0.59); #Neutrophils 2.93 10x3/uL (1.40-6.50); %Basophils 0.2 % (0.0-1.0); %Eosinophils 0.2 % (0.0-10.0); %Lymphocytes 21.9 % (21.0-51.0); %Monocytes 14.6 % (0.0-10.0); %Neutrophils 62.9 % (42.0-75.0); Hematocrit 39.2 % (36.0-47.0); Hemoglobin 11.9 g/dL (12.0-16.0); Mean Corpuscular Hemoglobin 22.2 pg (27.0-31.0); Mean Corpuscular Volume 73.0 fL (78.0-98.0); Platelet Count 155 10x3/uL (130-400); Red Blood Cell (RBC) Count 5.37 mill/uL (4.20-5.40); White Blood Cell (WBC) Count 4.66 10x3/uL (4.8-10.8)
[2025-02-17 12:25] LABS: Actual Bicarbonate (HCO3v) 19.9 mEq/L (22-28); Analyzer IN Cardio ER; Base Excess -5.6 mEq/L (-2.0 to +3.0); Calcium, Ionized (venous) 1.23 mmol/L (1.16-1.32); Chloride (VBG) 106 mmol/L (98-106); Hematocrit-VBG 39 % (36.0-47.0); Hemoglobin (Hb) 13.4 g/dL (11.7-15.5); Potassium (VBG) 3.58 mmol/L (3.70-5.30); Sodium 138 mmol/L (133-146)
[2025-02-17 12:28] LABS: BHCG - Serum Negative (NEGATIVE); Pregs Control Background? CLEAR/WHITE (CLR/WHITE); Pregs Control Bar Appear? YES (CONTROL BAR)
[2025-02-17 12:35] LABS: ALT (SGPT) 78 U/L (Less than 34); AST (SGOT) 71 U/L (11-34); Albumin 3.6 g/dL (3.1-4.5); Alkaline Phosphatase 75 U/L (40-110); Anion Gap 14 mmol/L (10-20); BUN (Urea Nitrogen) 9 mg/dL (7.0-18.7); Bilirubin, Total 0.2 mg/dL (0.3-1.2); Calc. Creatinine Clearance 0 mL/min (70-130); Calcium 9.4 mg/dL (7.8-10.44); Carbon Dioxide 20 mmol/L (22-29); Chloride 108 mmol/L (98-107); Globulin 3.6 g/dL (2.4-3.5); Glucose 103 mg/dL (70-105); Potassium 3.6 mmol/L (3.5-5.1); Sodium 138 mmol/L (136-145)
[2025-02-17 13:10] LABS: Magnesium 3.0 mg/dL (1.6-2.6)
[2025-02-17] MEDS ORDERED: Azithromycin 500 MG VIAL ONE (14:36)
[2025-02-17] MEDS ORDERED: Acetaminophen 325 MG TAB PO PRN (14:53)
[2025-02-17] MEDS ORDERED: Benzonatate 100 MG CAP PO PRN (15:35)
[2025-02-17] MEDS ORDERED: GUAIFENESIN SF SOLN 200 MG/10 ML UDCUP PO PRN (15:35)
[2025-02-17 17:14] LABS: Bacteria/HPF None Seen HPF (None Seen); CAUTI Indications for Culture Pelvic or flank pain; Glucose, Urine (Dipstick) Normal (Negative); Leukocyte 75 Leu/uL (Negative); Protein, Urine (Dipstick) Negative (Neg-Trace); RBC/HPF 0-3 HPF (0-3); Specific Gravity, Urine 1.023 (1.002-1.036)
[2025-02-17 17:18] LABS: Urine Culture Reflex Yes Yes
[2025-02-17 18:11] VITALS: BMI 36.4
[2025-02-17] MEDS: Mometasone 200 MCG/Formoterol 5 MCG 120 PUFF INHALER INH SCH (22:13)
[2025-02-18 05:17] LABS: Anion Gap 11 mmol/L (10-20); BUN (Urea Nitrogen) 11 mg/dL (7.0-18.7); Calc. Creatinine Clearance 207 mL/min (70-130); Calcium 9.6 mg/dL (7.8-10.44); Carbon Dioxide 23 mmol/L (22-29); Chloride 109 mmol/L (98-107); Glucose 122 mg/dL (70-105); Potassium 4.2 mmol/L (3.5-5.1); Sodium 139 mmol/L (136-145)
[2025-02-18 05:43] LABS: #Basophils Less than 0.03 10x3/uL (0.0-0.2); #Eosinophils Less than 0.03 10x3/uL (0.0-0.7); #Monocytes 0.52 10x3/uL (0.11-0.59); #Neutrophils 4.60 10x3/uL (1.40-6.50); %Basophils 0.0 % (0.0-1.0); %Eosinophils 0.0 % (0.0-10.0); %Lymphocytes 11.5 % (21.0-51.0); %Monocytes 9.0 % (0.0-10.0); %Neutrophils 79.2 % (42.0-75.0); Hematocrit 37.5 % (36.0-47.0); Hemoglobin 11.4 g/dL (12.0-16.0); Mean Corpuscular Hemoglobin 22.1 pg (27.0-31.0); Mean Corpuscular Volume 72.7 fL (78.0-98.0); Platelet Count 173 10x3/uL (130-400); Red Blood Cell (RBC) Count 5.16 mill/uL (4.20-5.40); White Blood Cell (WBC) Count 5.81 10x3/uL (4.8-10.8)
[2025-02-18] MEDS: Oseltamivir 75 MG CAP PO SCH (10:26)
[2025-02-18] MEDS: Pantoprazole 40 MG DR.TAB PO SCH (10:26)
[2025-02-18] MEDS: Enoxaparin 40 MG (0.4 mL) SYRINGE SC SCH (10:27)
[2025-02-18] MEDS: Azithromycin 500 MG in Sodium Chloride 0.9% 250 ML 250 ML IVPB SCH (15:45)
[2025-02-18] MEDS: Ondansetron PF 4 MG/2 ML Vial IVP SCH (18:35)
[2025-02-19 04:48] LABS: #Basophils Less than 0.03 10x3/uL (0.0-0.2); #Eosinophils Less than 0.03 10x3/uL (0.0-0.7); #Monocytes 0.45 10x3/uL (0.11-0.59); #Neutrophils 3.38 10x3/uL (1.40-6.50); %Basophils 0.2 % (0.0-1.0); %Eosinophils 0.0 % (0.0-10.0); %Lymphocytes 19.1 % (21.0-51.0); %Monocytes 9.5 % (0.0-10.0); %Neutrophils 71.0 % (42.0-75.0); Hematocrit 39.8 % (36.0-47.0); Hemoglobin 11.9 g/dL (12.0-16.0); Mean Corpuscular Hemoglobin 22.0 pg (27.0-31.0); Mean Corpuscular Volume 73.6 fL (78.0-98.0); Platelet Count 201 10x3/uL (130-400); Red Blood Cell (RBC) Count 5.41 mill/uL (4.20-5.40); White Blood Cell (WBC) Count 4.76 10x3/uL (4.8-10.8)
[2025-02-19 04:53] LABS: Anion Gap 12 mmol/L (10-20); BUN (Urea Nitrogen) 11 mg/dL (7.0-18.7); Calc. Creatinine Clearance 178 mL/min (70-130); Calcium 9.7 mg/dL (7.8-10.44); Carbon Dioxide 23 mmol/L (22-29); Chloride 106 mmol/L (98-107); Glucose 133 mg/dL (70-105); Potassium 4.3 mmol/L (3.5-5.1); Sodium 137 mmol/L (136-145)
[2025-02-19 05:15] LABS: Burr Cells SLIGHT = 2-5 cells HPF (0-1); Microcytosis SLIGHT = 6-15 cells HPF (0-5); Platelet Adequacy Comment Platelets Normal
[2025-02-19] MEDS: Pantoprazole 40 MG DR.TAB PO SCH (09:44)
[2025-02-19 12:06] VITALS: BP 110/62; TEMP 98.8
== END 2025-02-19 13:27 | disposition home or self-care (01) | DRG 872 ==
LOC: ERS 11:06 → OBS 14:53
PROVIDERS: ADMIT Internal Medicine; ATTEND Family Medicine
PROC: 3E033XZ Introduction of Vasopressor into Peripheral Vein, Percutaneous Approach (ICD-10-PCS; principal; 2025-02-17)
PROC: 3E03329 Introduction of Other Anti-infective into Peripheral Vein, Percutaneous Approach (ICD-10-PCS; 2025-02-17)
DX: A41.9 Sepsis, unspecified organism (principal); J45.901 Unspecified asthma with (acute) exacerbation; J10.1 Influenza due to other identified influenza virus with other respiratory manifestations; F41.9 Anxiety disorder, unspecified; Z88.0 Allergy status to penicillin; Z91.010 Allergy to peanuts; Z90.49 Acquired absence of other specified parts of digestive tract; Z98.51 Tubal ligation status; Z79.52 Long term (current) use of systemic steroids
CPT/HCPCS: 36415; 71045; 80048; 80053; 81001; 82805; 83605; 83735; 84484; 84703; 85025; 87040; 87086; 87149; 87633; 93005; 93010; 94640; J0169; J0456; J0696; J1650; J2060; J2405; J2919; J3475; J7050; J7611